=== PATIENT | female | born 1985 | race Caucasian/White ===

== ENCOUNTER → 2020-11-17 13:06 | Outpatient (REF) | payer BC, SELFPAY | LOC: ANHLAB 13:06 | PROVIDERS: PCP Nurse Practitioner Adult Health; Visit Provider Nurse Practitioner | DX: D22.111 Melanocytic nevi of right upper eyelid, including canthus (principal) | CPT/HCPCS: 88305 ==

== ENCOUNTER 2024-04-11 17:10 | Emergency (ER) | payer OTHER, BC, SELFPAY ==
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
[2024-04-11 17:42] VITALS: BP 130/87; PULSE 76; TEMP 36.4; O2SAT 99
[2024-04-11 18:08] VITALS: BP 130/87; PULSE 76; RESP 16; TEMP 36.4; O2SAT 99
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
[2024-04-11] MEDS: CYCLOBENZAPRINE HCL 5 MG TABLET PO (20:01)
[2024-04-11] MEDS: IBUPROFEN 400 MG TABLET 800 MG PO (20:01)
--- NOTE | 2024-04-11 20:30 | ECG_ITS ---
Test Date: 2024-04-11 20:46:52 Measurements Intervals [place] Rate: 80 P: 69 AK: 132 QRS: 77 QRSD: 86 T: 31 QT: 368 QTc: 426 Interpretive Statements SINUS RHYTHM POSSIBLE LEFT ATRIAL ENLARGEMENT [-0.1mV P WAVE IN V1/V2] POSSIBLE RIGHT VENTRICULAR CONDUCTION DELAY [RSR (QR) IN V1/V2] No previous ECG available for comparison Electronically Signed On 04-11-2024 21:44:04 CDT by Hema Henley M.D.
[2024-04-11 21:38] VITALS: BP 127/83; PULSE 86; RESP 18; TEMP 36.9; O2SAT 98
[2024-04-11] MEDS: HYDROcodone/acetaminophen (*CRX) 5-325 MG TABLET 1 TAB PO (21:44)
[2024-04-11] MEDS: ACETAMINOPHEN 500 MG TABLET 1000 MG PO (21:45)
== END 2024-04-11 21:58 | disposition home or self-care (01) ==
PROVIDERS: Emergency Provider Emergency Medicine
DX: S22.22XA Fracture of body of sternum, initial encounter for closed fracture (principal); S63.501A Unspecified sprain of right wrist, initial encounter; R94.31 Abnormal electrocardiogram [ECG] [EKG]; V47.6XXA Car passenger injured in collision with fixed or stationary object in traffic accident, initial encounter
CPT/HCPCS: 71250; 73100; 93005; 99284; A9270